=== PATIENT | female | born 1990 | race Caucasian/White ===

== ENCOUNTER → 2018-01-05 09:51 | Outpatient (CLI) | payer MEDICAID ==
[2018-01-05 10:40] LABS: APPEARANCE CLEAR (CLEAR); BILIRUBIN NEGATIVE (NEGATIVE); COLOR STRAW (YELLOW); GLUCOSE NEGATIVE (NEGATIVE); KETONE NEGATIVE (NEGATIVE); NITRITE NEGATIVE (NEGATIVE); PROTEIN NEGATIVE (NEGATIVE); SPECIFIC GRAVITY 1.005 (1.005-1.020); UROBILINOGEN NORMAL (NORMAL)
[2018-01-05 11:30] LABS: HEMOGLOBIN 10.5 g/dL (12-16); RDW 12.7 % (11.5-14.5)
[2018-01-05 11:40] LABS: BASOPHILS 0.1 % (0-2); EOSINOPHILS 0.6 % (0-7); HEMATOCRIT 32.7 % (36.0-48.0); IMMATURE GRANULOCYTES 0.5 % (0-5); LYMPHOCYTES 17.1 % (15-50); MCH 30.6 pg (26.0-34.0); MCHC 32.1 g/dL (31.0-37.0); MCV 95.3 fL (80.0-100.0); MEAN PLATELET VOLUME 9.8 fL (7.4-10.4); MONOCYTES 9.1 % (2-11); NEUTROPHILS 72.6 % (40-80); PLATELET COUNT 235 10x3/uL (130-400); RBC 3.43 10x6/uL (4.00-5.40); WBC 8.7 10x3/uL (4.8-10.8)
== END | disposition home or self-care (01) ==
LOC: D.LDO 09:51
PROVIDERS: Obstetrics & Gynecology
DX: O26.899 Other specified pregnancy related conditions, unspecified trimester (principal); Z3A.00 Weeks of gestation of pregnancy not specified

== ENCOUNTER 2018-03-24 08:00 | Inpatient (IN) | payer MEDICAID ==
[2018-03-23 12:13] LABS: BASOPHILS 0.4 % (0-2); EOSINOPHILS 0.9 % (0-7); HEMATOCRIT 32.9 % (36.0-48.0); HEMOGLOBIN 10.5 g/dL (12-16); IMMATURE GRANULOCYTES 0.6 % (0-5); LYMPHOCYTES 19.1 % (15-50); MCH 28.8 pg (26.0-34.0); MCHC 31.9 g/dL (31.0-37.0); MCV 90.1 fL (80.0-100.0); MEAN PLATELET VOLUME 9.9 fL (7.4-10.4); MONOCYTES 10.9 % (2-11); NEUTROPHILS 68.1 % (40-80); PLATELET COUNT 236 10x3/uL (130-400); RBC 3.65 10x6/uL (4.00-5.40); RDW 14.2 % (11.5-14.5); WBC 8.1 10x3/uL (4.8-10.8)
[2018-03-24] VITALS (9 sets, daily range): BP systolic 112–128; BP diastolic 66–84; Ht 170.2 cm; Wt 95.7 kg
[~2018-03-24] VITALS: Ht 170.2 cm; Wt 95.7 kg
--- NOTE | ~2018-03-24 | DS ---
PATIENT:JAK PEREZ :89 MEDICAL RECORD: [id number] DISCHARGE SUMMARY ADMISSION DATE: 03/24/18 DISCHARGE DATE: 03/26/18 DATE OF ADMISSION: 03/24/2018 DATE OF DISCHARGE: 03/26/2018 ADMISSION DIAGNOSES: 1. Prior section. 2. at 39 weeks' gestation. DISCHARGE DIAGNOSES: 1. Prior section. 2. at 39 weeks' gestation. PROCEDURE: Repeat low transverse section. ATTENDING: Juan Fernandez MD HISTORY OF PRESENT ILLNESS: See the H&P in the chart. SUMMARY OF HOSPITALIZATION: The patient was admitted to the hospital and underwent repeat section without difficulty. At the time of discharge, she was tolerating a regular diet and voiding without difficulty. The patient has adequate pain control on Toradol and Percocet. The patient's discharge medications will be ibuprofen and Percocet. Standard precautions have been reviewed and we have discussed contraception. She will be followed up in clinic in 2 weeks for an incision check. TRANSINT:[id number] Voice Confirmation ID: [id number] DOCUMENT ID: [id number] JUAN FERNANDEZ MD at 1144 CC: [id number] DICTATION DATE: 04/21/18 0920 PRINCIPLE INDUSTRIAL HYGIENIST: 04/21/18 1350 DIS IN 03/26/18 [place] [id number] [place] [address]
--- NOTE | ~2018-03-24 | OP ---
PATIENT NAME: JAK PEREZ MEDICAL RECORD: [id number] :89 LOCATION:[id number] ADMISSION DATE:03/24/18 SURGEON: DAMON FERNANDEZ MD DATE OF OPERATION: 03/24/2018 PREOPERATIVE DIAGNOSES: 1. Prior section. 2. at 39 weeks' gestation. POSTOPERATIVE DIAGNOSES: 1. Prior section. 2. at 39 weeks' gestation. PROCEDURE: Repeat low transverse section. SURGEON: Damon Fernandez MD ANESTHESIOLOGIST: Dr. Monroy. ANESTHETIC: Spinal. FINDINGS: Viable male infant, vertex presentation, Apgars 8 and 9, weight 7 pounds 5 ounces. Unremarkable uterus, tubes and ovaries. SPECIMEN REMOVED: Placenta. SPECIMEN DISPOSITION: Discarded. ESTIMATED BLOOD LOSS: 700 cc. FLUIDS: 1000 cc lactated Ringer's. URINE OUTPUT: 270 cc of clear urine. COMPLICATIONS: None. DRAINS: Whitley to gravity. INDICATIONS: The patient is a 27-year-old multiparous female at term with prior history of section consented for repeat. Risks, benefits and limitations described. DESCRIPTION OF PROCEDURE: After informed consent was assured, patient has been taken to the delivery room where anesthetic was obtained and she was prepped and draped in the usual sterile fashion. After assessment of the anesthetic, an incision was made over the old scar, carried down to the underlying layer of the fascia, which was opened in the midline and extended laterally. The rectus bellies were in the midline and the peritoneum was now entered. Ideally all-purpose retractor was inserted and a low transverse hysterotomy was performed after development of the bladder flap. Infant was delivered onto the abdomen atraumatically. Cord was doubly clamped and cut and the infant was passed to the attendance. Placenta was delivered via Crede maneuver. Uterus exteriorized, cleared of all clot and debris and closed in a running fashion with chromic stitch. After adequate hemostasis was established, uterus was returned to the abdomen and the operative field was irrigated. Irrigant was OPERATIVE REPORT [id number] JAK PEREZ removed. Inspection again revealed adequate hemostasis. The fascia was now closed in a running fashion with looped PDS. After closure of the fascia, subcutaneous tissue was irrigated. Bleeding vessels cauterized, and the skin was reapproximated with a subcuticular stitch. Sponge, lap, and needle counts correct times 2 at the close of this procedure. A sterile dressing was applied. TRANSINT:[id number] Voice Confirmation ID: [id number] DOCUMENT ID: [id number] DAMON FERNANDEZ MD at 1144 CC: [id number] DICTATION DATE: 04/21/18917 INSIDE POLISHER: 04/21/18 1054 DIS IN 03/26/18 [place] [id number] [place] [id number]
[2018-03-24 07:31] LABS: RAPID PLASMA REAGIN Non Reactive (Non Reactive)
[2018-03-24] MEDS ORDERED: PRENATAL COMPLE1 TAB PO (08:44)
[2018-03-25 03:33] VITALS: BP 111/63
[2018-03-25 07:01] LABS: BASOPHILS 0.1 % (0-2); EOSINOPHILS 0.9 % (0-7); HEMATOCRIT 28.6 % (36.0-48.0); IMMATURE GRANULOCYTES 0.3 % (0-5); LYMPHOCYTES 15.3 % (15-50); MCH 28.2 pg (26.0-34.0); MCHC 31.5 g/dL (31.0-37.0); MCV 89.7 fL (80.0-100.0); MONOCYTES 10.5 % (2-11); NEUTROPHILS 72.9 % (40-80); RBC 3.19 10x6/uL (4.00-5.40); RDW 14.2 % (11.5-14.5); WBC 7.7 10x3/uL (4.8-10.8)
[2018-03-25 07:04] LABS: PLATELET COUNT 186 10x3/uL (130-400)
[2018-03-25 08:30] VITALS: BP 105/61
[2018-03-25 19:34] VITALS: BP 121/66
[2018-03-26 07:50] VITALS: BP 120/73
== END 2018-03-26 11:53 | disposition home or self-care (01) | DRG 766 ==
LOC: D.LD 08:00
PROVIDERS: Obstetrics & Gynecology
PROC: 10D00Z1 Extraction of Products of Conception, Low, Open Approach (ICD-10-PCS; principal; 2018-03-24 10:00)
DX: O34.211 Maternal care for low transverse scar from previous cesarean delivery (principal); Z3A.39 39 weeks gestation of pregnancy; Z37.0 Single live birth

== ENCOUNTER 2021-01-23 10:55 | Inpatient (IN) | payer MEDICAID ==
[~2021-01-23] VITALS: Ht 170.2 cm; Wt 91.0 kg
[~2021-01-23 10:55] MED LIST: PRENATAL COMPLE1 TAB PO
[2021-01-23 11:42] LABS: BASOPHILS 0.1 % (0-2); EOSINOPHILS 0 % (0-7); HEMOGLOBIN 13.8 g/dL (12-16); IMMATURE GRANULOCYTES 0.2 % (0-5); LYMPHOCYTE ABS# 0.48 10x3/uL (1.18-3.74); MCHC 32.9 g/dL (31.0-37.0); MCV 91.3 fL (80.0-100.0); MEAN PLATELET VOLUME 9.8 fL (7.4-10.4); MONOCYTES 9.2 % (2-11); NEUTROPHIL ABS# 8.16 10x3/uL (1.56-6.13); NEUTROPHILS 85.5 % (40-80); PLATELET COUNT 193 10x3/uL (130-400); RDW 12.2 % (11.5-14.5); WBC 9.6 10x3/uL (4.8-10.8)
[2021-01-23 11:45] LABS: INFLUENZA TYPE A NEGATIVE (NEGATIVE); INFLUENZA TYPE B NEGATIVE (NEGATIVE); SARS-CoV-2 ANTIGEN NEGATIVE- SARS-COV-2 (NEGATIVE)
[2021-01-23 11:49] LABS: ANION GAP 16.6 mmol/L (8-16); CALCIUM 8.6 mg/dL (8.5-10.1); CARBON DIOXIDE 19.7 mmol/L (21.0-32.0); CREATININE - SERUM 1.1 mg/dL (0.6-1.3); POTASSIUM - SERUM 3.3 mmol/L (3.5-5.1)
[2021-01-23 11:55] LABS: ALBUMIN 3.5 g/dL (3.4-5.0); BILIRUBIN - TOTAL 0.35 mg/dL (0.2-1.3); PROTEIN - SERUM 7.8 g/dL (6.4-8.2)
[2021-01-23 12:09] LABS: BILIRUBIN NEGATIVE (NEGATIVE); KETONE SMALL mg/dL (NEGATIVE); NITRITE NEGATIVE (NEGATIVE); UROBILINOGEN NORMAL mg/dL (< 2)
[2021-01-23 12:11] LABS: AMORPHOUS SEDIMENT >1+ LPF (NONE SEEN); BACTERIA FEW HPF (NONE SEEN); SQUAMOUS EPITHELIAL OCC HPF (0-4); WHITE CELLS - URINE RARE HPF (0-4)
[2021-01-23 12:36] LABS: HCG URINE NEGATIVE (NEGATIVE)
--- NOTE | 2021-01-23 16:00 | NUR ---
RECEIVED FROM ER VIA W/C IN STABLE CONDITION ACCOMPANIED BY HOSPITAL STAFF, LYING IN BED, AWAKE/ALERT/ORIENTED, T/R SELF AD RAFAT, CONT OF B/B WITH BRPs PER SELF AD RAFAT, DENIES PAIN/OTHER DISCOMFORT AT THIS TIME, CALL LIGHT/PHONE WITHIN REACH, NO S/S OF ACUTE DISTRESS OBSERVED.
[2021-01-23 17:15] VITALS: BP 111/75; Ht 170.2 cm; Wt 91.0 kg
--- NOTE | 2021-01-23 19:30 | NUR ---
PT IN BED, AAO X 3, RESP EVEN AND UNLABORED, NO DISTRESS NOTED, CL IN REACH, SR UP X 2.
[2021-01-23 21:34] VITALS: BP 114/81
[2021-01-24 00:40] VITALS: BP 110/66
--- NOTE | 2021-01-24 04:06 | NUR ---
I have reviewed this patient and I concur with the Shift Assessment completed by the Licensed Practical Nurse today this shift.
[2021-01-24 06:06] VITALS: BP 108/67
[2021-01-24 06:09] LABS: BASOPHILS 0.2 % (0-2); EOSINOPHILS 0.2 % (0-7); HEMATOCRIT 36.1 % (36.0-48.0); HEMOGLOBIN 11.8 g/dL (12-16); IMMATURE GRANULOCYTES 0.4 % (0-5); LYMPHOCYTE ABS# 0.75 10x3/uL (1.18-3.74); MCH 29.6 pg (26.0-34.0); MCHC 32.7 g/dL (31.0-37.0); MCV 90.7 fL (80.0-100.0); MEAN PLATELET VOLUME 9.8 fL (7.4-10.4); MONOCYTES 12.3 % (2-11); NEUTROPHILS 72.9 % (40-80); PLATELET COUNT 189 10x3/uL (130-400); RBC 3.98 10x6/uL (4.00-5.40)
[2021-01-24 06:10] LABS: WBC 5.4 10x3/uL (4.8-10.8)
[2021-01-24 06:24] LABS: ALBUMIN 2.7 g/dL (3.4-5.0); ALKALINE PHOSPHATASE 63 U/L (30-120); ALT (SGPT) 19 U/L (10-68); BILIRUBIN - TOTAL 0.16 mg/dL (0.2-1.3); CARBON DIOXIDE 19.6 mmol/L (21.0-32.0); CHLORIDE - SERUM 106 mmol/L (98-107); GLUCOSE 98 mg/dL (74-106); POTASSIUM - SERUM 3.3 mmol/L (3.5-5.1); PROTEIN - SERUM 6.3 g/dL (6.4-8.2); SODIUM 136 mmol/L (136-145); eGFR NON AFRICAN AMERICAN 90 mL/min (90-120)
[2021-01-24 06:34] LABS: CALC OSMOLALITY 270 mosm/kg (275-300); CREATININE - SERUM 0.8 mg/dL (0.6-1.3); UREA NITROGEN 9 mg/dL (7-18)
--- NOTE | 2021-01-24 08:00 | NUR ---
PT RECEIVED AWAKE AND ALERT. SOME CRAMPING TO ABDOMEN, PROTONIX GIVEN. BREAKFAST AT BEDSIDE.
[2021-01-24 08:02] VITALS: BP 117/75
[2021-01-24 10:12] LABS: HEPATITIS C ANTIBODY <0.1 S/CO RAT (0.0-0.9)
[2021-01-24 11:10] VITALS: BP 111/74
[2021-01-24 14:53] VITALS: BP 107/72
--- NOTE | 2021-01-24 19:30 | NUR ---
PT IN BED, AAO X 3, AT BEDSIDE, RESP EVEN AND UNLABORED, NO DISTRESS NOTED, CL IN REACH, SR UP X 2.
[2021-01-24 20:50] VITALS: BP 126/84
--- NOTE | 2021-01-25 05:00 | NUR ---
I have reviewed this patient and I concur with the Shift Assessment completed by the Licensed Practical Nurse today this shift.
[2021-01-25 06:42] LABS: ALBUMIN 2.7 g/dL (3.4-5.0); ALKALINE PHOSPHATASE 60 U/L (30-120); ALT (SGPT) 18 U/L (10-68); BILIRUBIN - TOTAL 0.17 mg/dL (0.2-1.3); CALC OSMOLALITY 267 mosm/kg (275-300); CALCIUM 8.1 mg/dL (8.5-10.1); CARBON DIOXIDE 23.4 mmol/L (21.0-32.0); CHLORIDE - SERUM 103 mmol/L (98-107); CREATININE - SERUM 0.9 mg/dL (0.6-1.3); GLUCOSE 94 mg/dL (74-106); POTASSIUM - SERUM 3.2 mmol/L (3.5-5.1); PROTEIN - SERUM 6.3 g/dL (6.4-8.2); SODIUM 135 mmol/L (136-145); UREA NITROGEN 8 mg/dL (7-18); eGFR NON AFRICAN AMERICAN 79 mL/min (90-120)
[2021-01-25 06:45] LABS: BASOPHILS 0.4 % (0-2); EOSINOPHILS 0.8 % (0-7); HEMATOCRIT 35.7 % (36.0-48.0); HEMOGLOBIN 11.8 g/dL (12-16); IMMATURE GRANULOCYTES 0.2 % (0-5); LYMPHOCYTE ABS# 1.57 10x3/uL (1.18-3.74); LYMPHOCYTES 31.2 % (15-50); MCH 29.7 pg (26.0-34.0); MCHC 33.1 g/dL (31.0-37.0); MCV 89.9 fL (80.0-100.0); MEAN PLATELET VOLUME 9.7 fL (7.4-10.4); MONOCYTES 13.9 % (2-11); NEUTROPHILS 53.5 % (40-80); PLATELET COUNT 205 10x3/uL (130-400); RBC 3.97 10x6/uL (4.00-5.40); RDW 12.1 % (11.5-14.5)
[2021-01-25 07:59] VITALS: BP 105/63
[2021-01-25] MEDS ORDERED: FLORAJEN3 CAPS460 MG PO (09:48)
[2021-01-25] MEDS ORDERED: BENTYL10 MG PO (09:48)
[2021-01-25] MEDS ORDERED: LEVAQUIN750 MG PO (09:49)
[2021-01-25] MEDS ORDERED: FLAGYL500 MG PO (09:49)
[2021-01-25 11:49] VITALS: BP 116/76
--- NOTE | 2021-01-25 12:14 | NUR ---
PT IV REMOVED AND DISCHARGE INSTRUCTIONS REVIEWED. WHEELED TO ER FOR TRANSPORT.
--- NOTE | 2021-01-28 21:43 | MORECARE ---
CASE MANAGEMENT DISCHARGE SUMMARY PATIENT: JAK PEREZ UNIT: [id number] ADM DATE: 01/23/21 AGE: 30 : [birth year] SEX: F ROOM/BED: D.210 AUTHOR: DARREN HUIZAR PHYSICIAN: REFERRING PHYSICIAN: ANNA AUSTIN MD DATE OF SERVICE: 01/28/21 Discharge Plan Patient Name: [facility]AK [facility]ERE[facility] [facility] 1990 Planned Disposition: Home Anticipated Discharge Date: Discharge Date: 01/25/2021 Expected LOS: Initial Reviewer: [email or web address] Initial Review Date: 01/23/2021 Generated: 01/28/21 10:42 pm Patient Name: JAK PEREZ Page [id number] at 2143 All edits/amendments must be made on the electronic document DICTATION DATE: 01/28/212142 L[employer] SPANISH TEACHER: MODESTA 01/28/212142 RPT#: [id number] DC DATE:01/25/21 STATUS: DIS IN [facility] [address] [place] [address] END OF REPORT
--- NOTE | 2021-01-28 21:49 | MORECARE ---
CASE MANAGEMENT DISCHARGE SUMMARY PATIENT: JAK PEREZ UNIT: [id number] ADM DATE: 01/23/21 AGE: 30 : [birth year] SEX: F ROOM/BED: D.210 AUTHOR: DARREN HUIZAR PHYSICIAN: REFERRING PHYSICIAN: ANNA AUSTIN MD DATE OF SERVICE: 01/28/21 Discharge Plan Patient Name: JAK [facility]EREZ [facility] [facility] 1990 Planned Disposition: Home Anticipated Discharge Date: Discharge Date: 01/25/2021 Expected LOS: Initial Reviewer: [email or web address] Initial Review Date: 01/23/2021 Generated: 01/28/21 10:49 pm DCPIA - Discharge Planning Initial Assessment Updated by [email or web address]: Shonda Dumont on 01/28/21 9:46 pm * Is the patient Alert and Oriented? Yes * How many steps to enter\exit or inside your home? * PCP [facility] * Pharmacy [facility] * Preadmission Environment Home with Family * ADLs Independent * Equipment None * List name and contact numbers for known caregivers / representatives who currently or will assist patient after discharge: MICA RUBI - [phone] * Verbal permission to speak to the caregivers and representatives has been obtained from the patient. Yes * Community resources currently utilized None * Additional services required to return to the preadmission environment? No * Can the patient safely return to the preadmission environment? Yes * Has this patient been hospitalized within the prior 30 days at any hospital? No Last DP export: 01/28/21 8:43 pm Patient Name: JAK PEREZ Page [id number] at 2149 All edits/amendments must be made on the electronic document DICTATION DATE: 01/28/212148 PENCIL SORTER: MODESTA 01/28/212148 RPT#: [id number] DC DATE:01/25/21 STATUS: DIS IN [facility] [address] [place] [address] END OF REPORT
--- NOTE | 2021-01-28 21:56 | MORECARE ---
CASE MANAGEMENT DISCHARGE SUMMARY PATIENT: JAK PEREZ UNIT: [id number] ADM DATE: 01/23/21 AGE: 30 : [birth year] SEX: F ROOM/BED: D.6714 AUTHOR: BHUPENDRA,DOC PHYSICIAN: REFERRING PHYSICIAN: ANNA AUSTIN MD DATE OF SERVICE: 01/28/21 Discharge Plan Patient Name: JAK PEREZ [facility]: [facility]:[place] : 1990 Planned Disposition: Home Anticipated Discharge Date: Discharge Date: 01/25/2021 Expected LOS: Initial Reviewer: [email or web address] Initial Review Date: 01/23/2021 Generated: 01/28/21 10:55 pm Comments DCP- Discharge Planning Updated by [email or web address]: Shonda Dumont on 01/28/21 8:[address] LATE ENTRY 01/25/21 Patient Name: JAK PEREZ Admission Status: ER Accout number: [id number] Admission Date: 01-23-2021 : 1990 Admission Diagnosis:FEVER, UNSPECIFIED Attending: ANNA AUSTIN Current LOS: 2 Anticipated DC Date: Planned Disposition: Home Primary Insurance: MEDICAID [place] Discharge Planning Comments: CM spoke with patient to complete initial dc planning assessment. CM educated patient on the CM role and verbal consent given by patient to complete assessment. Patient lives at home with family. Patient is independent. At discharge patient plans to return home and feels this is a safe discharge. CM discussed availability of home health, rehab services, and medical equipment. Patient will have family to transport home. Patient denied known discharge needs at this time. CM will continue to follow and will assist as needed with dc plans/needs. Plant Care Worker: Shonda Dumont DCPIA - Discharge Planning Initial Assessment Updated by [email or web address]: Shonda Dumont on 01/28/21 9:46 pm * Is the patient Alert and Oriented? Yes * How many steps to enter\exit or inside your home? * PCP [facility] * Pharmacy [facility] * Preadmission Environment Home with Family * ADLs Independent * Equipment None * List name and contact numbers for known caregivers / representatives who currently or will assist patient after discharge: MICA RUBI [phone] * Verbal permission to speak to the caregivers and representatives has been obtained from the patient. Yes * Community resources currently utilized None * Additional services required to return to the preadmission environment? No * Can the patient safely return to the preadmission environment? Yes * Has this patient been hospitalized within the prior 30 days at any hospital? No Last DP export: 01/28/21 8:49 pm Patient Name: JAK PEREZ Page [phone] at 2156 All edits/amendments must be made on the electronic document DICTATION DATE: 01/28/212154 ARTIFICIAL BREEDING DISTRIBUTOR: MODESTA 01/28/212154 RPT#: [id number] DC DATE:01/25/21 STATUS: DIS IN [facility] [address] [place] [address] END OF REPORT
== END 2021-01-25 12:15 | disposition home or self-care (01) | DRG 392 ==
LOC: D.ER 10:55 → D.M2 13:56 → D.EDHOLD 13:56 → D.M2 14:48
PROVIDERS: Family Medicine; ADMIT Emergency Medicine; ATTEND Emergency Medicine
DX: K52.9 Noninfective gastroenteritis and colitis, unspecified (principal); K51.90 Ulcerative colitis, unspecified, without complications; E86.0 Dehydration; R16.2 Hepatomegaly with splenomegaly, not elsewhere classified; E87.6 Hypokalemia; K44.9 Diaphragmatic hernia without obstruction or gangrene